=== PATIENT | female | born 1985 | race Caucasian/White ===

== ENCOUNTER 2024-09-01 11:36 | Emergency (ER) | payer BC, SELFPAY ==
[2024-09-01 11:39] VITALS: BP 114/68
[2024-09-01 11:51] LABS: % Basophils 0.3 % (0-2); % Eosinophils 0.5 % (0-6); % Immature Granulocytes 0.3 % (0-0.5); % Lymphocytes 21.2 % (20.5-51.1); % Monocytes 6.7 % (1.7-9.3); Absolute Lymphocytes 1.4 10^3/uL (1.2-3.4); Absolute Monocytes 0.4 10^3/uL (0.1-0.6); Absolute Neutrophils 4.7 10^3/uL (1.4-6.5); Hematocrit 40.1 % (37.0-47.0); Hemoglobin 13.8 g/dL (12.0-16.0); Mean Corp Hgb Conc. 34.4 g/dL (33.0-37.0); Mean Corpuscular Hgb 30.5 pg (27.0-31.0); Mean Corpuscular Volume 88.7 fL (81.0-99.0); Mean Platelet Volume 9.8 fL (7.4-10.4); Nucleated Red Blood Cells % 0 %; Platelet Count 303 10^3/uL (130-400); Red Blood Cell Count 4.52 10^6/uL (4.20-5.40); Red Cell Dist. Width 12.2 % (11.5-14.5); White Blood Cell Count 6.6 10^3/uL (4.8-10.8)
[2024-09-01 11:58] LABS: Urine Albumin Negative (Neg - Trace); Urine Bilirubin Negative (Negative); Urine Character Clear (Clear); Urine Color Yellow; Urine Glucose Negative (Negative); Urine Ketone Negative (Negative); Urine Leukocyte Negative (Negative); Urine Nitrite Negative (Negative); Urine Occult Blood 1+ (Negative); Urine Specific Gravity 1.005 (<1.030); Urine Urobilinogen Negative (Neg - 1+)
[2024-09-01 12:00] VITALS: BP 117/88
[2024-09-01 12:04] LABS: Urine Red Blood Cell 0-2 /HPF (0-2); Urine White Cell 0-2 /HPF (0-5)
[2024-09-01 12:05] LABS: ALT (SGPT) 16 U/L (0-35); AST (SGOT) 23 U/L (14-36); Albumin 4.9 g/dl (3.5-5.0); Alkaline Phosphatase 47 U/L (38-126); Blood Urea Nitrogen 12 mg/dl (7-17); Calcium 9.4 mg/dl (8.4-10.2); Carbon Dioxide 25 mmol/L (22-30); Chloride 104 mmol/L (98-107); Glucose 109 mg/dl (70-99); Potassium 3.6 mmol/L (3.5-5.1); Sodium 139 mmol/L (135-145); Total Bilirubin 1.1 mg/dl (0.2-1.3); Total Protein 7.3 g/dl (6.3-8.2); eGFR > 60.00
[2024-09-01 12:16] LABS: Troponin I < 0.012 ng/ml
--- NOTE | 2024-09-01 12:23 | ED.GENMED ---
History of Present Illness
General
Chief Complaint: Fainting Sensation
Source: patient
Time Seen by Provider: 09/01/24 11:45
History of Present Illness
History of Present Illness:
39-year-old female presenting to the ER for evaluation after having a near syncopal event while driving her child to a swimming lesson earlier this morning, was able to extractor puller and eat a granola bar which made her feel little bit better, got to
the swimming site and had another near syncopal event. Patient contacted EMS who brought patient to the ER for further evaluation and by time of arrival to the ER patient reports she is asymptomatic and feels back to her usual self patient does
note that she has had similar events in the past without any complications or known diagnosis. Patient denies any chest pain, shortness of breath, palpitations, diaphoresis, exertional dyspnea, orthopnea or any other concerns presently. She also
denies any recent illnesses, nausea, vomiting.
Past History
Past History
ED Past Medical History: None
ED Past Surgical History: None
Social History
Tobacco: Non-smoker
Alcohol: Occasional
Drug: None
Personal:
Living: with family
Employment: Employed
Review of Systems
Review of Systems
All Other Systems: ROS reviewed and negative except as documented in HPI and ROS
Phy Exam
Physical Exam
Physical Exam:
GENERAL: Alert , in no apparent distress
EYE: conjunctiva clear
NECK: Supple
ENT: o/p clr, mmm.
CARDIAC: Regular rate and rhythm
LUNGS: Clear breath sounds bilaterally, no acute respiratory distress, no wheezes/rales/rhonchi
NEUROLOGICAL: Alert and oriented
SKIN: Warm and dry, skin intact.
MUSCULOSKELETAL: well perfused.
PSYCH: Normal and appropriate interaction.
Scores
Heart Failure Risk
Heart Failure Risk Score: Not Applicable
Heart Score for Chest Pain Patients
STEMI patient?: Not applicable
Withdrawal Assessment of Alcohol
Withdrawal Assessment Completed?: Not applicable
Course
Orders/Labs/Results
Orders:
Orders
09/01/24 11:37
Electrocardiogram (*1) Urgent
Reason for Study: Vertigo / Dizzy
09/01/24 11:38
EKG- Treatment ONCE
09/01/24 11:44
Complete Blood Count/With Diff Routine
Comprehensive Metabolic Panel Urgent
Troponin I Urgent
09/01/24 11:47
Urine Culture Reflexed from UA [Urinalysis Reflex To Culture] Urgent
Date Specimen was Collected: 09/01/24
Time Specimen was Collected: 11:46
Urine Microscopic Reflex Cult Urgent
09/01/24 11:52
CR Chest - 2 Views Urgent
Comment:
Reason For Exam: sob
Abnormal Lab Results
09/01/24 09/01/24
11:44 11:47
Glucose 109 H mg/dl
(70-99)
Ur Occult Blood Reflex 1+ A
(Negative)
09/01/24 11:44
09/01/24 11:44
Vital Signs
Initial and Last Documented VS:
Initial Vital Signs
Temp Pulse Resp BP Pulse Ox
98.3 F 75 20 114/68 99
09/01/24 11:39 09/01/24 11:39 09/01/24 11:39 09/01/24 11:39 09/01/24 11:39
Last Documented Vital Signs
Temp Pulse Resp BP Pulse Ox
98.3 F 67 11 117/88 100
09/01/24 11:39 09/01/24 12:00 09/01/24 12:00 09/01/24 12:00 09/01/24 12:00
MDM/Problems Addressed
Differential Diagnosis Includes:
Vasovagal event, orthostasis, cardiac dysrhythmia/arrhythmia, hypoglycemia
MDM/Problems Addressed:
39-year-old female presenting the ER for evaluation of near syncopal event that occurred earlier today. History of similar without any known diagnoses. Patient is asymptomatic at present time. Physical exam reassuring. Will check labs, EKG and
keep patient on telemetry. Patient otherwise hemodynamically stable
*Pulse Oximetry
Patient hypoxic: no
*EKG
Interpretation: normal
Heart Rate: 75
Rate: normal
Rhythm: sinus
[address]: normal axis
Ischemia: no ischemia
*Fur Repairer Interpretation
Rate: normal
Rhythm: sinus
*Critical Care Note
Total Time (30-74mins, 75-104mins- exclusive of procedures): Not Applicable
Patient Management
Escalation/DeEscalation of care consider admission/obs:
Patient ambulating with steady gait in room. Workup reassuring. I did discuss with patient that if the symptoms persist she may need cardiology follow-up for further monitoring and potential for Holter monitor. Patient expressed understanding.
Stable for discharge and outpatient management
ED Attending Note
-
Portions of this chart may have been created with voice recognition software.� Occasional wrong word or��sound alike� substitutions may have occurred due to the inherent limitations of voice recognition software.
Discharge Plan
Departure
Patient Disposition: Home (Routine Discharge)
Date of Disposition: 09/01/24
Time of Disposition: 12:23
Patient with high blood pressure during this ER visit?: No
Discharge Problem:
Near syncope
Instructions: Near Fainting (DC)
Referrals:
Jeanette Nath DO [Family Provider] -
Interventions
Interventions:
*General Assessment Last Done: 09/01/24 11:39
ED- Fall Risk Assessment Last Done: 09/01/24 12:23
*Nursing Disposition Last Done: 09/01/24 12:27
ED- Cardiac Assessment Last Done: 09/01/24 12:23
ED- Neurological Assessment Last Done: 09/01/24 12:23
Discharge Date and Time
Print Language: LITHUANIAN
== END 2024-09-01 14:12 | disposition home or self-care (01) ==
LOC: EMR 11:36
PROVIDERS: EMERGENCY PHYSICIAN Emergency Medicine; FAMILY PHYSICIAN Family Medicine
DX: R55 Syncope and collapse (principal)
CPT/HCPCS: 99285; 71046; 80053; 81003; 81015; 84484; 85025; 93005